=== PATIENT | female | born 1990 | race African-American/Black ===

== ENCOUNTER → 2025-07-31 | Day surgery (SDC) | payer OTHER ==
[~2025-07-31] VITALS: Ht 165.1 cm; Wt 88.2 kg
[~2025-07-31] MED LIST: BUPR-363; HYDR-643; LIDOCAINE 2% 100 MG/5 ML SDV (FOR ANES.) As Ordered ONE
[2025-07-31 11:17] VITALS: TEMP 98.9
[2025-07-31 11:40] VITALS: BP 114/62; O2SAT 100
== END | disposition home or self-care (01) ==
LOC: M OPP 10:10
PROVIDERS: ATTEND Internal Medicine Gastroenterology
DX: K64.0 First degree hemorrhoids (principal); K62.5 Hemorrhage of anus and rectum; R19.4 Change in bowel habit; Z79.899 Other long term (current) drug therapy